=== PATIENT | female | born 1955 | race Caucasian/White ===

== ENCOUNTER 2018-01-27 17:26 | Emergency (ER) | payer OTHER ==
[2018-01-27 17:38] VITALS: BP 123/66
--- NOTE | 2018-01-27 17:42 | UC ---
Skin Complaint HPI - HPI Summary HPI Summary: 62 y/o female presents to the urgent care c/o a tick bite over the abdomen and another tick bite over the back of her neck she noticed yesterday around 1315pm. Pt was out in the pick[place] around 0930AM. She removed the tick and brought them w/ her. They are not engorged. She has a red rash around the tick bite on the abdomen. Pt is concerned about Lyme Disease. Pt denies fever, RAMIRES, joint pains, SOB, chest pain, abdominal pain, N/V/D - History of Current Complaint Chief Complaint: UCSkin Time Seen by Provider: 01/27/18 17:40 Stated Complaint: TICK BITE Hx Obtained From: Patient ?: No - menopausal Onset/Duration: Sudden Onset, Lasting Days - 1 day, Still Present Skin Exposure Onset/Duration: Days Ago - 1 day Timing: Constant Onset Severity: Mild Current Severity: Mild Pain Intensity: 3 Pain Scale Used: 0-10 Numeric Location: Discrete - left side of abdomen and posterior neck Character: Redness Aggravating Factor(s): Touch Alleviating Factor(s): Other - tick removed Associated Signs & Symptoms: Positive: Rash. Negative: Nausea, Vomiting, Numbness, Fever, Chills, Drainage, Tenderness Related History: Possible Reaction to: Insect - Allergy/Home Medications Allergies/Adverse Reactions: Allergies Allergy/AdvReac Type Severity Reaction Status Date / Time epinephrine Allergy See Comment Verified 01/27/18 17:39 Penicillins Allergy Hives Verified 01/27/18 17:39 Review of Systems Constitutional: Negative Skin: Rash - left side of abdomen a dn posterior neck w/ a tick bite Eyes: Negative ENT: Negative Respiratory: Negative Cardiovascular: Negative Gastrointestinal: Negative Genitourinary: Negative Motor: Negative Neurovascular: Negative Musculoskeletal: Negative Neurological: Negative Psychological: Negative Is Patient Immunocompromised?: No All Other Systems Reviewed And Are Negative: Yes PMH/Surg Hx/FS Hx/Imm Hx Previously Healthy: Yes - Pt denies PMHX - Surgical History Surgical History: Yes Surgery Procedure, Year, and Place: DENTAL - Family History Known Family History: Positive: Diabetes Negative: Blood Disorder - Social History Occupation: Employed Full-time Lives: With Family Alcohol Use: Occasionally Substance Use Type: None Smoking Status (MU): Never Smoked Tobacco Physical Exam - Summary Physical Exam Summary: Vital Signs Reviewed: Yes General: well developed, well nourished female sitting in the examining table w/ o any apparent distress. Eyes: Positive: Conjunctiva Clear - PERRLA, EOMI ENT: Positive: Normal ENT inspection, Hearing grossly normal, Pharynx normal, TMs normal Neck: Positive: Supple, Nontender, No Lymphadenopathy Respiratory: Positive: Chest nontender, Lungs clear, Normal breath sounds Cardiovascular: Positive: RRR, No Murmur, Pulses Normal Abdomen Description: Positive: Nontender, No Organomegaly, Soft. Negative: CVA Tenderness (R), CVA Tenderness (L) Bowel Sounds: Positive: Present Musculoskeletal: Positive: Strength Intact, ROM Intact, No Edema Neurological Exam: Normal Psychological Exam: Normal Skin: Positive: rashes - LLQ abdomen and posterior neck with tick bites with surrounding erythema, Abdomen> neck, non tender to palpation. tick no longer present, no swelling or drainage observed. Triage Information Reviewed: Yes Vital Signs: Initial Vital Signs Temp 97.9 F 01/27/18 17:35 Pulse 96 01/27/18 17:35 Resp 18 01/27/18 17:35 BP 123/66 01/27/18 17:35 Pulse Ox 98 01/27/18 17:35 Course/Dx - Course Course Of Treatment: 62 y/o female presents to the urgent care c/o a tick bite over the abdomen and another tick bite over the back of her neck she noticed yesterday around 1315pm. Pt was out in the [place] around 0930AM. She removed the tick and brought them w/ her. They are not engorged. She has a red rash around the tick bite on the abdomen. Pt is concerned about Lyme Disease. Pt denies fever, RAMIRES, joint pains, SOB, chest pain, abdominal pain, N/V/D. Hx obtained. Pt w/LLQ abdomen and posterior neck with tick bites with surrounding erythema, Abdomen> neck, non tender to palpation. tick no longer present, no swelling or drainage observed. Antibiotic prophylaxis with Doxycycline given to the patient to prevent lyme Disease.. Pt tolerated well medication. Pt advised to observe the area for the development or Erythema Migrans for upto 30 days following exposure. Advised if he develops fever or erythema Migrans to return to the clinic or PCP for further treatment . D/C instructions explained.Pt understood and agreed with plan of care. - Differential Diagnoses - Skin Complaint Differential Diagnoses: Abscess, Cellulitis, Local Allergic Reaction, Tick Born Illness, Other - bee sting, insect bite - Diagnoses Provider Diagnoses: 1- Tick bite Discharge - Sign-Out/Discharge Documenting (check all that apply): Discharge/Admit/Transfer - D/C home - Discharge Plan Condition: Stable Disposition: HOME Prescriptions: Bacitracin OINTMENT* 1 applic TOPICAL BID #1 tube Patient Education Materials: Tick Bite (ED) Referrals: Arelis SPARROW,Yrn Jones [Medical Doctor] - If Needed Nupur Tinoco MD [Primary Care Provider] - 2 Weeks Additional Instructions: 1- Please observe the area for the development or Erythema Migrans for upto 30 days following exposure. Components of the tick saliva can cause transient erythema that should not be confused with Erythema Migrans. If you develop the bull's eye rash, fever, joint pains please return to the urgent care or f/u with your PCP for further management. 2-Antibiotic prophylaxis with Doxycycline was given to you today to prevent lyme Disease. Lyme serology can be drawn in 2 weeks with your PCP to r/o Lyme disease since there is probability of negative results at early exposure. 3- Apply Bacitracin ointment as directed over tick bite - Billing Disposition and Condition Condition: STABLE Disposition: HOME
[2018-01-27] MEDS ORDERED: DOXYcycline CAP(*) 100 MG PO ONE (18:01)
== END 2018-01-27 18:15 | disposition home or self-care (01) ==
LOC: UCEAST 17:26
DX: S30.861A Insect bite (nonvenomous) of abdominal wall, initial encounter (principal); S10.86XA Insect bite of other specified part of neck, initial encounter; W57.XXXA Bitten or stung by nonvenomous insect and other nonvenomous arthropods, initial encounter; Y93.9 Activity, unspecified; Y92.821 Forest as the place of occurrence of the external cause; Z88.0 Allergy status to penicillin; Z88.8 Allergy status to other drugs, medicaments and biological substances
CPT/HCPCS: 99212; A9270-GY; G0463